=== PATIENT | male | born 1945 | race Caucasian/White ===

== ENCOUNTER 2016-11-28 11:15 | Observation (INO) | payer OTHER ==
[2017-01-24] MEDS ORDERED: TRANEXAMIC ACID 3,000 MG/50 ML BAG IRR ONE (06:51)
[2017-01-24] MEDS ORDERED: VANCOMYCIN 1 GM VIAL IV ONE (06:51)
[2017-01-24] MEDS ORDERED: SKIN ADHESIVE (DERMABOND) 1 EACH TP ONE (06:51)
[2017-01-24] MEDS ORDERED: CHLORHEXIDINE GLUC HIBICLENS 118 ML BTL TP ONE (08:00)
[2017-01-24] MEDS ORDERED: TRANEXAMIC ACID 3,000 MG in NS 50 ML IRR ONE (08:00)
[2017-01-24] MEDS ORDERED: ROPI/epiNEPH/KETOROLAC JOINT COCKTAIL IU ONE (08:00)
[2017-01-24] MEDS ORDERED: FAMOTIDINE 20 MG TAB PO ONE (08:00)
[2017-01-24] MEDS ORDERED: ACETAMINOPHEN 325 MG TAB PO ONE (08:00)
[2017-01-24] MEDS ORDERED: DEXAMETHASONE 4 MG/ML VIAL IVP ONE (08:00)
[2017-01-24] MEDS ORDERED: CEFAZOLIN 2 GM/DEXTR 100 ML IV ONE (08:00)
[2017-01-24] MEDS ORDERED: LIDOCAINE 1% 2 ML INJ ONE (09:29)
[2017-01-24] MEDS ORDERED: LR 1,000 ML IV ONE (09:42)
[2017-01-24] MEDS ORDERED: LIDOCAINE 1% 5 ML SDV ID PRN (09:42)
[2017-01-24] MEDS ORDERED: MIDAZOLAM 2 MG/2 ML VIAL ONE (10:04)
[2017-01-24] MEDS ORDERED: PROPOFOL/EMULSION 500 MG/50 ML BOTTLE IV ONE (10:17)
[2017-01-24] MEDS ORDERED: ONDANSETRON 4 MG/2 ML VIAL ONE (10:17)
[2017-01-24] MEDS ORDERED: fentaNYL 100 MCG/2 ML INJ ONE (10:17)
[2017-01-24] MEDS ORDERED: DEXAMETHASONE 4 MG/ML VIAL ONE ×2 (10:17→11:26)
[2017-01-24] MEDS ORDERED: LACTULOSE 20 GM/30 ML UDCUP PO PRN (10:57)
[2017-01-24] MEDS ORDERED: TEMAZEPAM 15 MG CAP PO PRN (10:57)
[2017-01-24] MEDS ORDERED: PROMETHAZINE HCL 25 MG SUPPR PR PRN (10:57)
[2017-01-24] MEDS ORDERED: CYCLOBENZAPRINE 10 MG TAB PO PRN (10:57)
[2017-01-24] MEDS ORDERED: METOCLOPRAMIDE 10 MG/2 ML VIAL IVP PRN (10:57)
[2017-01-24] MEDS ORDERED: MAGNESIUM HYDROXIDE 30 ML UDCUP PO PRN (10:57)
[2017-01-24] MEDS ORDERED: BISACODYL 10 MG SUPP PR PRN (10:57)
[2017-01-24] MEDS ORDERED: ONDANSETRON 4 MG/2 ML VIAL IVP PRN (10:57)
[2017-01-24] MEDS ORDERED: PHARMACY PAIN CONSULT 1 EA MISC PRN (10:57)
[2017-01-24] MEDS ORDERED: DIPHENOXYLATE/ATROPINE LOMOTIL 1 TAB PO PRN (10:57)
[2017-01-24] MEDS ORDERED: oxyCODONE IR 5 MG TAB PO PRN (10:57)
[2017-01-24] MEDS ORDERED: ONDANSETRON DISINTEGRATING 4 MG TAB PO PRN (10:57)
[2017-01-24] MEDS ORDERED: POLYETHYLENE GLYCOL 3350 17 GM PKT PO PRN (10:57)
[2017-01-24] MEDS ORDERED: diphenhydrAMINE 25 MG CAP PO PRN (10:57)
[2017-01-24] MEDS ORDERED: LR 1,000 ML IV SCH (11:00)
[2017-01-24] MEDS ORDERED: PROPOFOL 200 MG/20 ML VIAL ONE (11:19)
[2017-01-24] MEDS ORDERED: ROPIVACAINE HCL 150 MG/30 ML INJ ONE (11:26)
--- NOTE | 2017-01-24 11:50 | POSTOPPROG ---
Post Op Note Date of Operation: 01/24/17 Surgeon: Harry Morley Cylindrical Mixer: katelynn morley Anesthesiologist: dr. dimas Anesthesia: Spinal, Other (Specify) (adductor canal block) Pre-op Diagnosis: left knee OA Post-op Diagnosis: same Indication: left knee pain due to OA that failed conservative measures Procedure: L med partial knee arthroplasty, robot assisted Findings: severe medial knee OA Inf/Abcess present in the surg proc area at time of surgery?: No EBL: [id number]
[2017-01-24] MEDS ORDERED: ZOLPIDEM TARTRATE 5 MG TAB PO PRN (13:25)
[2017-01-24] MEDS: ACETAMINOPHEN 325 MG TAB PO SCH ×2 (14:49→17:51)
[2017-01-24] MEDS: ceFAZolin 2 GM/DEXTROSE 100 ML IV SCH ×2 (15:52→22:01)
[2017-01-24] MEDS ORDERED: WARFARIN SODIUM 5 MG TAB PO SCH (16:00)
[2017-01-24] MEDS: SENNOSIDES/DOCUSATE SODIUM TAB PO SCH (19:59)
[2017-01-24] MEDS: FAMOTIDINE 20 MG TAB PO SCH (19:59)
[2017-01-24] MEDS ORDERED: NON-FORMULARY NEW DRUG (Zolpidem Tartrate [Ambien 10 Mg] 5 MG) PO SCH (21:00)
[2017-01-25] MEDS: ACETAMINOPHEN 325 MG TAB PO SCH ×3 (00:01→12:12)
[2017-01-25 04:36] VITALS: TEMP 97.7
[2017-01-25 05:15] LABS: HEMATOCRIT 43.3 % (40.0-51.0); HEMOGLOBIN 14.5 g/dL (13.7-17.5)
[2017-01-25 05:26] LABS: PROTIME(PATIENT) 13.1 SEC (12.0-15.0)
[2017-01-25 07:26] VITALS: BP 127/70; PULSE 42; RESP 14; O2SAT 99
[2017-01-25] MEDS: FAMOTIDINE 20 MG TAB PO SCH (08:24)
[2017-01-25] MEDS: SENNOSIDES/DOCUSATE SODIUM TAB PO SCH (08:25)
[2017-01-25] MEDS ORDERED: ENOXAPARIN 40 MG/0.4 ML SYR SC SCH (09:00)
[2017-01-25] MEDS ORDERED: ATORVASTATIN CALCIUM 10 MG TAB PO SCH (09:00)
--- NOTE | 2017-01-25 17:10 | GDS ---
[f rep st] DISCHARGE SUMMARY ADMISSION DIAGNOSIS: Left knee osteoarthritis. DISCHARGE DIAGNOSIS: Left knee osteoarthritis. PROCEDURE: Left partial knee arthroplasty, medial compartment, robotic-assisted VTE PROPHYLAXIS: Coumadin and Lovenox recommended for 3 weeks BRIEF DESCRIPTION OF HOSPITAL STAY: Patient was admitted for an elective joint arthroplasty. The p atient tolerated the procedure well and has passed physical therapy. The patient was given appropri ate antibiotic prophylaxis and venous thromboembolism prophylaxis. The patient's pain was well cont rolled on oral pain medication, patient was holding down food, and had urinated. Decision was made to discharge the patient. The patient was given post-operative prescriptions pre-operatively. PLAN: To follow up with Dr. Torres at [facility] in 2 to 3 weeks. /[id number]/MODL
--- NOTE | 2017-01-25 18:31 | GOP ---
[f rep st] OPERATIVE REPORT DATE OF OPERATION: 01/24/2017 SURGEON: Fabricio Torres MD POLYSTYRENE MOLDING MACHINE TENDER: AKUA Oliveira ANESTHESIA: Spinal. PREOPERATIVE DIAGNOSIS: Left knee osteoarthritis. POSTOPERATIVE DIAGNOSIS: Left knee osteoarthritis. PROCEDURE PERFORMED: Left medial compartment partial knee replacement with computer navigation and robotics. FINDINGS: severe medial OA ESTIMATED BLOOD LOSS: 30 cc. INDICATIONS: This is a 71-year-old male with progressive pain of the left knee unresponsive to conservative care. Risks and benefits of surgical intervention were explained in detail. DESCRIPTION OF PROCEDURE: The patient was brought to the operating room and placed on the table in supine position. Spinal anesthesia was induced without difficulty. A pneumatic tourniquet was applied about the left proximal thigh and the leg was prepped and draped in sterile fashion. Attention was turned first to the distal aspect of the left femur. At 3 cm proximal to the lateral rise of the femur, 2 percutaneous half pins were placed for fixation of the femoral array. In a similar fashion, 2 pins were placed anterolateral on the tibia for fixation of the tibial array. External land marking and registration of the hip center was performed without difficulty. After exsanguination by elevation, the tourniquet was inflated to 250 mmHg. Incision was made from the tibial tuberosity to the superior pole of the patella. Dissection was carried out through the subcutaneous tissue to the deep fascia using Bovie electrocautery for hemostasis. Medial parapatellar arthrotomy was carried out to the superior pole of the patella. The medial collateral ligament was elevated and the infrapatellar fat pad was resected. Internal femoral and tibial registration was carried out without difficulty and the femoral and tibial checkpoints were placed and verified for accuracy. Attention was turned to the femur. The foot print for the size 4 femur femoral component was cut with the 6 mm bur using the [employer] robotic system and verified for accuracy against the CT based plan. The hole was cut for the femoral post. In a similar fashion, the 6 mm bur was used to cut the foot print for the size 5 tibial component using the [employer] system and verified for accuracy against the CT based plan. left knee, left thigh, left femur for prep. Attention was turned to the posterior aspect of the knee and remnants of the medial meniscus were excised. The posterior capsule was injected with ropivacaine, epinephrine and Toradol. Trial reduction was carried out and there was excellent range of motion, alignment and stability using the size ____ _ femoral component and the size tibial component. All trials were then removed. The joint was thoroughly irrigated and carefully dried. One package of cement and 1 gram of vancomycin were mixed in the vacuum mixer and placed on the fixation surfaces of all components. The components were implanted and all excess cement was thoroughly removed. Implant placement was verified against the CT view plan and found to be excellent. The tourniquet was deflated and all bleeders were coagulated. The wound was thoroughly irrigated and closed using interrupted sutures of 2-0 Vicryl for the joint capsule. The subcu was closed with 3-0 Vicryl and the skin with 4-0 Monocryl. Dermabond and Steri-Strips were applied, followed by a compressive dressing. The patient was then moved from the operating room to the recovery room in good condition, having tolerated the procedure well. PATHOLOGY: Severe medial compartment osteoarthritis. CASE CLASSIFICATION: Clean. /[id number]/MODL MTDD
--- NOTE | 2017-01-25 22:09 | SOAPPROG ---
SOAP Progress Note Assessment/Plan: Assessment: Doug is doing well POD 1 s/p left med MPL pain well controlled on oral pain meds anemia: level expected initially postop. asymptomatic VTE ppx: recommend coumadin and lovenox daily.cont LB gallo d/c planning: d/c to home pending release from PT Plan: 01/25/17 22:08 Subjective: Doug is doing well today, denies SOB, chest pain and n/v. Objective: Vital Signs Temp Pulse Resp BP Pulse Ox 36.5 C 42 L 14 127/70 H 99 01/25/17 07:24 01/25/17 07:24 01/25/17 07:24 01/25/17 07:24 01/25/17 07:24 Laboratory Results 01/25/17 04:28 01/24/17 01/25/17 01/26/17 05:59 05:59 05:59 Intake Total 2695 Output Total 825 Balance 1870 PT 13.1 SEC (12.0-15.0) 01/25/17 04:28 INR 1.00 (0.83-1.16) 01/25/17 04:28 LLE: incision dressing is clean and dry, NVI, +pf/df ICD10 Worksheet Patient Problems: Problems Problem Status Onset Primary localized osteoarthritis of left knee Acute
== END 2017-01-25 12:40 | disposition home or self-care (01) ==
LOC: INTOOBSV 01-24 08:57 → F3N 01-24 08:57
PROVIDERS: ADMIT Orthopaedic Surgery; ATTEND Orthopaedic Surgery
PROC: 0SRD0L9 Replacement of Left Knee Joint with Medial Unicondylar Synthetic Substitute, Cemented, Open Approach (ICD-10-PCS; principal; 2017-01-24 10:22)
PROC: 8E0Y0CZ Robotic Assisted Procedure of Lower Extremity, Open Approach (ICD-10-PCS; principal; 2017-01-24 10:22)
DX: M17.12 Unilateral primary osteoarthritis, left knee (principal)
CPT/HCPCS: 27446; 73560; 97161; 97165; C1713; C1776; G8978; G8979; G8980; G8987; G8988; G8989; J0171; J0690; J1100; J1650; J1885; J2250; J2405; J2704; J2795; J3010; J3370

== ENCOUNTER → 2017-01-08 | Outpatient (CLI) | payer OTHER | LOC: FIMAGING 07:53 | PROVIDERS: ATTEND Orthopaedic Surgery | DX: M17.12 Unilateral primary osteoarthritis, left knee (principal); M25.462 Effusion, left knee; M71.22 Synovial cyst of popliteal space [Baker], left knee; M16.12 Unilateral primary osteoarthritis, left hip ==